=== PATIENT | female | born 1960 | race Caucasian/White ===

== ENCOUNTER → 2016-07-19 | Outpatient (CLI) | payer BC ==
[~2016-07-19] MED LIST: ALBU18002 INH; AMOX875T PO; METH4PAK PO; MOME200A INH; MULTTAB58 PO; NUTRTAB40 PO; PHEN-876 PO; PXL/40 PO; RIZA10TA18 PO; TAMS0.4C38 PO; ZOLP5TAB PO
--- NOTE | 2016-07-19 14:35 | DIAGNOSTIC IMAGING REPORT ---
Study: Fusion CT of the sinuses HISTORY: Recurrent sinusitis FINDINGS: Minimal mucosal thickening of the mastoid air cells. Sphenoid sinuses are clear. There has been bilateral antral window placement. These are widely patent. The [place] ostiomeatal units appear to be soft tissue occluded and/or surgically removed. Partial ethmoidectomy. Partial to mid nasal turbinate resection. Mild hypertrophic change of the residual nasal turbinates. No significant nasal occlusive change. IMPRESSION: 1. Findings consistent with partial ethmoidectomies, bilateral patent antral window placement, and partial nasal turbinate resection. 2. All major sinuses are generally clear. 3. The antral windows are widely patent. 4. Mild hyperplastic change of the residual nasal turbinates Electronically signed by: Chandra Seay M.D. 07/19/2016 2:33 PM Dictated Date/Time: 07/19/2016 2:26 PM
== END | disposition home or self-care (01) ==
LOC: C.CTS 14:10
DX: J34.3 Hypertrophy of nasal turbinates (principal)

== ENCOUNTER 2016-08-06 01:41 | Emergency (ER) | payer BC ==
[~2016-08-06] VITALS: Ht 170.2 cm; Wt 83.3 kg
[~2016-08-06 01:41] MED LIST changes: -ALBU18002 INH; -AMOX875T PO; -METH4PAK PO; -MOME200A INH
[2016-08-06 01:44] VITALS: Ht 170.2 cm; Wt 83.3 kg
[2016-08-06] MEDS ORDERED: KETOROLAC TROMETHAMINE 30 MG/ML VIAL IV STA (01:58)
[2016-08-06] MEDS ORDERED: SODIUM CHLORIDE 0.9% 1000ML 1,000 ML IV STA ×2 (01:58→05:07)
[2016-08-06] MEDS ORDERED: MoRPHine SULFATE 10 MG/ML CARP/VIAL IV STA (01:58)
[2016-08-06] MEDS ORDERED: PROMETHAZINE HCL INJ 25 MG in SODIUM CHLORIDE 0.9% 50ML 50 ML IV STA (01:58)
--- NOTE | 2016-08-06 01:59 | EMERGENCY ROOM VISIT NOTE ---
History Report prepared by Ro: Malcolm Torres Under the Supervision of: Dr. Albaro Andrea M.D. First contact with patient: 01:49 Chief Complaint: HEADACHE Stated Complaint: MIGRAINE History of Present Illness The patient is a 56 year old female who presents to the Emergency Room with complaints of a worsening migraine headache that began at 1800, 8 hours prior to arrival. The patient states that she has had a "nagging headache" throughout the day today which worsened to a migraine at 1800 this evening. The patient has a history of migraine headache, but notes that she has not had one this severe in a couple of years. This episode is like those she has experienced in the past. She is also complaining of nausea currently. She denies any weakness, neck pain, or loss of bowel control. 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 A total of 10 systems reviewed and were otherwise negative. Past Medical & Surgical Medical Problems: (1) Kidney stone (2) Migraine Family History Kidney stones Social History Smoking Status: Former Smoker Alcohol Use: none Drug Use: none Occupation Status: employed Current/Historical Medications Scheduled Amoxicillin & Pot Clavulanate (Augmentin 875-125 mg), 875 MG PO BID Methylprednisolone (Medrol Dosepak), 1 PKT PO UD Mometasone Furoate-Formoterol (Dulera 200/5 Mcg), 2 PUFFS INH BID Multiple Vitamin (Multivitamin), 1 TAB PO QAM Paroxetine (Paxil), 40 MG PO HS Rizatriptan Benzoate (Maxalt), 10 MG PO PRN Scheduled PRN Albuterol Sulfate (Proair Respiclick), 1 PUFF INH DIRECTED PRN for SOB/ Wheezing Zolpidem Tartrate (Ambien), 5 MG PO HS PRN for Sleep Allergies Coded Allergies: Tobramycin (Verified Allergy, Mild, ITCHING, 08/06/16) Animal Dander (Verified Allergy, Unknown, HIVES, SNEEZING, WATERING EYES, 08/06/16) Uncoded Allergies: ? STEROID/ANTIBOTIC EYE GTT (Allergy, Mild, ITCHING, 08/14/12) Physical Exam Vital Signs Date Time Temp Pulse Resp B/P Pulse Ox O2 Delivery O2 Flow Rate FiO2 08/06/16 06:53 36.5 66 18 131/77 96 08/06/16 06:52 66 18 131/77 96 Room Air 08/06/16 05:00 85 20 98 Room Air 08/06/16 03:43 64 16 141/83 98 Room Air 08/06/16 01:44 36.5 67 16 160/90 98 Room Air Physical Exam GENERAL: Patient is well appearing and in mild distress. HEAD: No acute trauma, normocephalic atraumatic ENT: Mucous membranes moist, no nasal congestion. EYES: Equal/Reactive Bilaterally, No scleral icterus, Normal ROM NECK: No nuchal rigidity, no meningismus, trachea is midline, full ROM LUNGS: No dyspnea. Clear to auscultation and equal bilaterally. No wheeze, no rhonchi. HEART: Regular rate and rhythm. No murmurs, rubs, gallops appreciated. ABDOMEN: Soft, nontender, bowel sounds positive, no masses appreciated, no peritonitis. BACK: No midline tenderness, no CVA tenderness EXTREMITIES: Normal motion all extremities, no cyanosis, no edema. NEUROLOGIC: Awake, Alert, Oriented, no acute motor or sensory deficits, no focal weakness, cranial nerves grossly intact. SKIN: No rash, no jaundice, no diaphoresis. Medical Decision & Procedures ER Provider Diagnostic Interpretation: Radiology results and stated below per my review and radiologist interpretation: CT HEAD: No intracranial hemorrhage or mass effect. Opacification of the bilateral frontal sinuses and right ethmoid air cells. Radiologist: Ac Vaughn M.D. Laboratory Results 08/06/16 05:10 Red Blood Count 4.66, Mean Corpuscular Volume 84.8, Mean Corpuscular Hemoglobin 29.2, Mean Corpuscular Hemoglobin Concent 34.4, Mean Platelet Volume 9.6, Neutrophils (%) (Auto) 64.8, Lymphocytes (%) (Auto) 26.4, Monocytes (%) (Auto) 4.2, Eosinophils (%) (Auto) 3.5, Basophils (%) (Auto) 0.9, Neutrophils # (Auto) 2.94, Lymphocytes # (Auto) 1.20, Monocytes # (Auto) 0.19, Eosinophils # (Auto) 0.16, Basophils # (Auto) 0.04 08/06/16 05:10 Test 08/06/16 05:10 White Blood Count 4.54 K/uL (4.8-10.8) Red Blood Count 4.66 M/uL (4.2-5.4) Hemoglobin 13.6 g/dL (12.0-16.0) Hematocrit 39.5 % (37-47) Mean Corpuscular Volume 84.8 fL (80-100) Mean Corpuscular Hemoglobin 29.2 pg (25-34) Mean Corpuscular Hemoglobin Concent 34.4 g/dl (32-36) Platelet Count 234 K/uL (130-400) Mean Platelet Volume 9.6 fL (7.4-10.4) Neutrophils (%) (Auto) 64.8 % Lymphocytes (%) (Auto) 26.4 % Monocytes (%) (Auto) 4.2 % Eosinophils (%) (Auto) 3.5 % Basophils (%) (Auto) 0.9 % Neutrophils # (Auto) 2.94 K/uL (1.4-6.5) Lymphocytes # (Auto) 1.20 K/uL (1.2-3.4) Monocytes # (Auto) 0.19 K/uL (0.11-0.59) Eosinophils # (Auto) 0.16 K/uL (0-0.5) Basophils # (Auto) 0.04 K/uL (0-0.2) RDW Standard Deviation 39.6 fL (36.4-46.3) RDW Coefficient of Variation 12.7 % (11.5-14.5) Immature Granulocyte % (Auto) 0.2 % Immature Granulocyte # (Auto) 0.01 K/uL (0.00-0.02) Anion Gap 7.0 mmol/L (3-11) Est Creatinine Clear Calc Drug Dose 104.9 ml/min Estimated GFR () 114.9 Estimated GFR (Non- 99.2 BUN/Creatinine Ratio 17.0 (10-20) Calcium Level 8.4 mg/dl (8.5-10.1) Laboratory results as reviewed by me. Medications Administered Medications (Trade) Dose Ordered Sig/Landry Route Start Time Stop Time Status Last Admin Dose Admin Sodium Chloride 1,000 ml @ 999 mls/hr Q1H1M STAT IV 08/06/16 01:58 08/06/16 02:58 DC 08/06/16 02:20 999 MLS/HR Promethazine HCl/ Sodium Chloride (Phenergan Inj/ Nss 50ml) 51 ml @ 204 mls/hr NOW STAT IV 08/06/16 01:58 08/06/16 02:12 DC 08/06/16 02:21 204 MLS/HR Ketorolac Tromethamine (Toradol Inj) 30 mg NOW STAT IV 08/06/16 01:58 08/06/16 01:59 DC 08/06/16 02:21 30 MG Morphine Sulfate (MoRPHine SULFATE INJ) 4 mg STK-MED ONCE .ROUTE 08/06/16 02:07 08/06/16 02:08 DC 08/06/16 02:22 4 MG Morphine Sulfate (MoRPHine SULFATE INJ) 2 mg STK-MED ONCE .ROUTE 08/06/16 02:07 08/06/16 02:08 DC 08/06/16 02:22 2 MG Dexamethasone Sodium Phosphate (Decadron Inj) 10 mg NOW ONCE IV 08/06/16 03:15 08/06/16 03:16 DC 08/06/16 03:27 10 MG Morphine Sulfate (MoRPHine SULFATE INJ) 4 mg NOW STAT IV 08/06/16 03:08 08/06/16 03:09 DC 08/06/16 03:29 4 MG Ondansetron HCl (Zofran Inj) 4 mg NOW STAT IV 08/06/16 03:08 08/06/16 03:09 DC 08/06/16 03:27 4 MG Hydromorphone HCl (Dilaudid Inj) 1 mg NOW STAT IV 08/06/16 04:03 08/06/16 04:04 DC 08/06/16 04:09 1 MG Prochlorperazine Edisylate (Compazine Inj) 10 mg NOW STAT IV 08/06/16 04:39 08/06/16 04:40 DC 08/06/16 04:58 10 MG Diphenhydramine HCl 25 mg 25 mg NOW STAT IV 08/06/16 05:07 08/06/16 05:08 DC 08/06/16 05:46 25 MG Sodium Chloride (Nss 1000ml) 1,000 ml @ 999 mls/hr Q1H1M STAT IV 08/06/16 05:07 08/06/16 06:07 DC 08/06/16 05:47 999 MLS/HR Amoxicillin/ Clavulanate Potassium (Augmentin Tab) 875 mg ONE ONCE PO 08/06/16 06:15 08/06/16 06:16 DC 08/06/16 06:21 875 MG ED Course 0154: The patient was evaluated in room B12. A complete history and physical exam was performed. 0158: Ordered Toradol 30 mg IV, Promethazine HCl 51 mL @ 204 mL/hr IV, Morphine Sulfate 6 mg IV, Sodium Chloride 1000 mL @ 999 mL/hr IV. 0308: Ordered Zofran 4 mg IV, Morphine Sulfate 4 mg IV. 0315: Ordered Dexamethasone 10 mg IV. 0403: Ordered Dilaudid 1 mg IV. 0404: I checked on the patient at this time. Her headache is improved, but she would like some more pain medication. She admits to recently stopping her migraine medication due to a kidney stone. I suggested that we obtain a CT of the head and she is agreeable. 0429: I reevaluated the patient at this time. She is improving but notes that her nausea has returned. She noted that she is currently being treated for a severe sinus infection with a nasal spray. She follows with ENT. 0439: Ordered Prochlorperazine 10 mg IV. 0507: Ordered Sodium Chloride 1000 mL @ 999 mL/hr IV, Benadryl 25 mg IV. 0508: I checked on the patient at this time. She is feeling shaky and thinks that her blood sugar is low. I discussed the possibility of blood work and she is agreeable. 0609: I once again discussed the possibility of the Lumbar Puncture, she declines. The patient will be discharged home. 0615: Ordered Augmentin 875 mg PO. Medical Decision Differential: Headache, Migraine, Cluster Headache, Seizure, Meningitis, Sinusitis, CO exposure, ICH/SAH, Infectious, Tumor, Sinus Thrombosis, Arterial Dissection, amongst other pathologies entertained. 56 yr old female arrives with band like pain across forehead in to head. Consistent with her previous migraines which bring her to ED every few years. Admits coming off her Topiramate a few weeks ago which I suspect has worsened her headache. Furthermore, she notes being treated for frontal sinus congestion with ENT. Given multiple round of pain/nausea meds and patient with waxing/waning multiple different symptoms. Shaky post compazine thus Benadryl and labs done as she feels she has low blood sugar issues. No fever, no nuchal rigidity, no weakness, no AMS, headache improving and WBC not elevated. I do not feel this is bacterial meningitis, though I made clear to her that LP would be only way to definitively rule out, which she with shared decision making is not interested in having done at this time. The is possibility of viral meningitis, though her exam is not consistent with this. I suspect main cause if coming off her migraine medication, then developing sinus congestion, and then not taking her Maxalt in time for this migraine. After several hours in ED patient feeling much improved, and comfortable with discharge. We discussed abx and with worsening sinus congestion and ct findings seems reasonable doing Augmentin along with steroid pack. Impression Primary Impression: Headache Additional Impressions: Migraine Frontal sinusitis Scribe Attestation The scribe's documentation has been prepared under my direction and personally reviewed by me in its entirety. I confirm that the note above accurately reflects all work, treatment, procedures, and medical decision making performed by me. Departure Information Dispostion Home / Self-Care Prescriptions Amoxicillin & Pot Clavulanate (Augmentin 875-125 mg) 1 Tab Tab 875 MG PO BID for 7 Days, #14 TAB Prov: Albaro Andrea M.D. 08/06/16 Methylprednisolone (MEDROL DOSEPAK) 4 Mg Andrés 1 PKT PO UD for 6 Days, #1 PKT Prov: Albaro Andrea M.D. 08/06/16 Referrals Bacilio Gregg M.D. (PCP) Patient Instructions ED Headache Migraine, My [facility] Additional Instructions You have received multiple sedative type medications. These medications cause drowsiness and should not be used with other sedative medications. Do not drive , drink alcohol, perform dangerous activities, nor make important decisions after taking these medications. Please follow up with your primary care provider in the next few days to discuss your symptoms, along with CT findings of sinus blockages. Problem Qualifiers Primary Impression: Headache Headache type: unspecified Headache chronicity pattern: acute headache Intractability: not intractable Qualified Codes: R51 - Headache Additional Impressions: Migraine Migraine type: unspecified Status migrainosus presence: without status migrainosus Intractability: not intractable Qualified Codes: G43.909 - Migraine, unspecified, not intractable, without status migrainosus Frontal sinusitis Chronicity: subacute Qualified Codes: J01.10 - Acute frontal sinusitis, unspecified
[2016-08-06] MEDS ORDERED: MoRPHine SULFATE 4 MG/ML 1 ML CARP\\VIAL ONE (02:07)
[2016-08-06] MEDS ORDERED: MoRPHine SULFATE 2 MG/ML CARP ONE ×2 (02:07→03:25)
[2016-08-06] MEDS ORDERED: MOME200A INH (02:16)
[2016-08-06] MEDS ORDERED: ALBU18002 INH (02:17)
[2016-08-06] MEDS ORDERED: ONDANSETRON INJ 2 MG/ML 2 ML VIAL IV STA (03:08)
[2016-08-06] MEDS ORDERED: MoRPHine SULFATE 4 MG/ML 1 ML CARP\\VIAL IV STA (03:08)
[2016-08-06] MEDS ORDERED: DEXAMETHASONE SOD INJ 10 MG/ML VIAL IV ONE (03:15)
[2016-08-06] MEDS ORDERED: HYDROmorphone INJ 1 MG/ML SYR IV STA (04:03)
[2016-08-06] MEDS ORDERED: PROCHLORPERAZINE 5 MG/ML 2 ML VIAL IV STA (04:39)
[2016-08-06] MEDS ORDERED: DiphenhydrAMINE HCL 50 MG/ML VIAL IV STA (05:07)
[2016-08-06 05:22] LABS: BASO % 0.9 %; BASO ABS # 0.04 K/uL (0-0.2); COMPLETE YES; EOS % 3.5 %; HEMATOCRIT 39.5 % (37-47); IG% 0.2 %; LYMPH % 26.4 %; MEAN CELL VOLUME 84.8 fL (80-100); MEAN CORPUSCULAR HEMOGLOBIN 29.2 pg (25-34); MEAN CORPUSCULAR HGB CONC 34.4 g/dl (32-36); MEAN PLATELET VOLUME 9.6 fL (7.4-10.4); MONO % 4.2 %; NEUT % 64.8 %; PLATELET COUNT 234 K/uL (130-400); RED BLOOD COUNT 4.66 M/uL (4.2-5.4); WHITE BLOOD COUNT 4.54 K/uL (4.8-10.8)
[2016-08-06 05:41] LABS: CALCIUM 8.4 mg/dl (8.5-10.1); CREATININE 0.68 mg/dl (0.60-1.20)
[2016-08-06] MEDS ORDERED: AMOXICILLIN/CLAVULANATE TAB 875 MG TAB PO ONE (06:15)
[2016-08-06] MEDS ORDERED: METH4PAK PO (06:18)
[2016-08-06] MEDS ORDERED: AMOX875T PO (06:18)
--- NOTE | 2016-08-06 06:30 | DIAGNOSTIC IMAGING REPORT ---
CT HEAD WITHOUT CONTRAST (CT) CLINICAL HISTORY: Persistent headache COMPARISON STUDY: October 19, 2008 TECHNIQUE: Axial CT of the brain is performed from the vertex to the skull base. IV contrast was not administered for this examination. CT DOSE: 614.27 mGy.cm FINDINGS: No intra or extra-axial mass lesions are visualized. There is no CT evidence of acute cortical infarction. There is no evidence of midline shift. There is no acute hemorrhage. No calvarial fractures are visualized. There is no evidence of pathologic ventricular dilatation. There is opacification of right anterior ethmoid air cells. There is partial opacification of the frontal sinuses. IMPRESSION: 1. Inflammatory changes within the right ethmoid and frontal sinuses 2. Otherwise no acute intracranial findings. Electronically signed by: Booker Pickett M.D. 08/06/2016 6:29 AM Dictated Date/Time: 08/06/2016 6:27 AM
[2016-08-06 06:53] VITALS: BP 131/77; PULSE 66; TEMP 36.5; O2SAT 96
== END 2016-08-06 06:54 | disposition home or self-care (01) ==
LOC: C.EDB 01:42
DX: G43.909 Migraine, unspecified, not intractable, without status migrainosus (principal); J01.10 Acute frontal sinusitis, unspecified; Z87.442 Personal history of urinary calculi; Z84.1 Family history of disorders of kidney and ureter; Z87.891 Personal history of nicotine dependence; Z79.899 Other long term (current) drug therapy

== ENCOUNTER → 2016-08-10 | Outpatient (CLI) | payer BC ==
[~2016-08-10] MED LIST changes: +ALBU18002 INH; +AMOX875T PO; +METH4PAK PO; +MOME200A INH; -NUTRTAB40 PO; -PHEN-876 PO; -TAMS0.4C38 PO
[2016-08-10 09:13] LABS: ALT/SGPT 21 U/L (12-78); BLOOD UREA NITROGEN 14 mg/dl (7-18); BUN/CREATININE RATIO 22.7 (10-20); CARBON DIOXIDE 30 mmol/L (21-32); CHLORIDE 106 mmol/L (98-107); CHOLESTEROL 260 mg/dl (0-200); CREATININE 0.63 mg/dl (0.60-1.20); GLUCOSE 74 mg/dl (70-99); POTASSIUM 3.5 mmol/L (3.5-5.1); SODIUM 143 mmol/L (136-145); TRIGLYCERIDES 140 mg/dl (0-150); VERY LOW DENSITY LIPOPROT CALC 28 mg/dl
[2016-08-10 09:21] LABS: CALCIUM 9.5 mg/dl (8.5-10.1)
[2016-08-10 09:24] LABS: ALKALINE PHOSPHATASE 80 U/L (45-117); AST/SGOT 8 U/L (15-37); CHOLESTEROL/HDL RATIO 3.6; HDL CHOLESTEROL 73 mg/dl; LDL CHOLESTEROL CALCULATED 159 mg/dl; THYROID STIMULATING HORMONE 0.463 uIu/ml (0.300-4.500)
== END | disposition home or self-care (01) ==
LOC: C.LAB 06:58
PROVIDERS: ATTEND Internal Medicine
DX: R53.83 Other fatigue (principal); E78.5 Hyperlipidemia, unspecified; E87.6 Hypokalemia; M19.90 Unspecified osteoarthritis, unspecified site

== ENCOUNTER → 2017-01-17 | Outpatient (CLI) | payer BC ==
[~2017-01-17] MED LIST changes: -AMOX875T PO; -METH4PAK PO
--- NOTE | 2017-01-17 14:41 | DIAGNOSTIC IMAGING REPORT ---
KUB HISTORY: NEPHROLITHIASIS COMPARISON: KUB 07/17/2015. FINDINGS: The bowel gas pattern is unremarkable. There are no dilated loops of small bowel to suggest an obstruction. No ureteral calculi. Calcifications in the deep pelvis likely represent phleboliths. These remain unchanged. The left ureteral stent has been removed. Punctate stones within the lower pole the left kidney on the prior study are no longer identified and may have passed in the interval. There are suggestion of a punctate stone within the interpolar region of the left kidney. No definite right renal calculi. No pneumoperitoneum or pneumatosis. IMPRESSION: 1. Decrease in number of stones within the left kidney. 2. No right renal calculi. 3. No ureteral calculi. Electronically signed by: Souleymane Morales M.D. 01/17/2017 2:39 PM Dictated Date/Time: 01/17/2017 2:37 PM
== END | disposition home or self-care (01) ==
LOC: C.RAD 14:16
PROVIDERS: ATTEND Urology
DX: N20.0 Calculus of kidney (principal)

== ENCOUNTER → 2017-05-16 | Outpatient (CLI) | payer OTHER | END | disposition home or self-care (01) | LOC: C.RDSM 18:28 | PROVIDERS: ATTEND Orthopaedic Surgery | DX: S82.001A Unspecified fracture of right patella, initial encounter for closed fracture (principal); X58.XXXA Exposure to other specified factors, initial encounter ==

== ENCOUNTER → 2017-05-27 | Outpatient (CLI) | payer OTHER ==
--- NOTE | 2017-05-28 08:03 | MAMMOGRAPHY REPORT ---
BILATERAL DIGITAL SCREENING MAMMOGRAM TOMOSYNTHESIS WITH CAD: 05/27/2017 CLINICAL HISTORY: Routine screening. Patient has no complaints. TECHNIQUE: Breast tomosynthesis in addition to standard 2D mammography was performed. Current study was also evaluated with a Computer Aided Detection (CAD) system. COMPARISON: Comparison is made to exams dated: 03/22/2016 mammogram, 05/11/2015 mammogram, 02/28/2015 mammogram, 02/28/2015 ultrasound, 02/09/2015 mammogram, and 01/26/2013 mammogram - [facility]. BREAST COMPOSITION: There are scattered areas of fibroglandular density in both breasts. FINDINGS: There is a stable benign coarse calcification in the left breast. No suspicious mass, arc hitectural distortion or cluster of microcalcifications is seen. IMPRESSION: ACR BI-RADS CATEGORY 1: NEGATIVE There is no mammographic evidence of malignancy. A 1 year screening mammogram is recommended. The pa tient will receive written notification of the results. Approximately 10% of breast cancers are not detected with mammography. A negative mammographic report should not delay biopsy if a clinically suggestive mass is present. Kandice Doe M.D. ay/:05/27/2017 15:13:26 Assistant Plant Control Operator: Jennie Funes, [facility] letter sent: Normal 1/2 BI-RADS Code: ACR BI-RADS Category 1: Negative
== END | disposition home or self-care (01) ==
LOC: C.MAMM 13:44
PROVIDERS: ATTEND Obstetrics & Gynecology
DX: Z12.31 Encounter for screening mammogram for malignant neoplasm of breast (principal)

== ENCOUNTER → 2017-05-30 | Outpatient (CLI) | payer OTHER | END | disposition home or self-care (01) | LOC: C.RDSM 15:38 | PROVIDERS: ATTEND Orthopaedic Surgery | DX: S82.001A Unspecified fracture of right patella, initial encounter for closed fracture (principal); X58.XXXA Exposure to other specified factors, initial encounter; Z88.1 Allergy status to other antibiotic agents; Z91.048 Other nonmedicinal substance allergy status ==

== ENCOUNTER → 2017-06-27 | Outpatient (CLI) | payer OTHER | END | disposition home or self-care (01) | LOC: C.RDSM 09:48 | PROVIDERS: ATTEND Orthopaedic Surgery | DX: S89.91XA Unspecified injury of right lower leg, initial encounter (principal); X58.XXXA Exposure to other specified factors, initial encounter ==

== ENCOUNTER → 2017-07-25 | Outpatient (CLI) | payer OTHER | END | disposition home or self-care (01) | LOC: C.RDSM 18:18 | PROVIDERS: ATTEND Orthopaedic Surgery | DX: T14.8XXA Other injury of unspecified body region, initial encounter (principal); X58.XXXA Exposure to other specified factors, initial encounter ==

== ENCOUNTER 2024-12-12 21:55 | Observation (INO) ==
--- NOTE | 2024-12-12 22:36 | Emergency Department Note ---
Impression & Plan Vertigo, Nausea & vomiting, Dizziness ED Provider Note CHIEF COMPLAINT: Vertigo HISTORY OF PRESENTING ILLNESS: The patient is a 64-year-old female with a H anxiety, depression, insomnia, asthma, prediabetes, migraines, KULWANT, and hyperlipidemia who presents to the emergency department reporting dizziness as if the room is spinning and nausea that began around dinnertime about 5 to 6 hours ago. She reports having a similar episode of vertigo a couple of years ago. She has not taken anything for symptoms. She is not able to ambulate on her own without almost falling over. Reports blurry vision when she does have these episodes. Denies slurred speech, facial droop, headache, neck pain, shortness of breath, chest pain, abdominal pain, injury or trauma. REVIEW OF SYSTEMS: See HPI for pertinent positives and pertinent negatives. ALLERGIES: Tobramycin, sulfamethoxazole, trimethoprim, animal dander MEDICATIONS: See below PAST MEDICAL HISTORY: See below PHYSICAL EXAM: VITALS: Vitals are noted on the nurses note and reviewed by myself. Vital signs stable. GENERAL: 64-year-old female, lying in bed with a pillow propped behind her head, holding an emesis bag, in no acute distress, nondiaphoretic, well-developed well-nourished. SKIN: Capillary refill less than 2 seconds. HEENT: Normocephalic. PERRLA. EOMI. Horizontal nystagmus upon movement. Nares patent. Mucous membranes moist. Neck is supple without nuchal rigidity. HEART: Regular rate and rhythm without murmurs gallops or rubs. LUNGS: CTA BL without wheezes, rales or rhonchi. No retractions or accessory muscle use. ABDOMEN: Soft, nontender, without masses or organomegaly. No guarding or rebound tenderness. MUSCULOSKELETAL: No gross musculoskeletal defects. No pedal edema. No calf tenderness. NEURO: Patient was alert and oriented to person place and time. No focal neurological deficits. INTERPRETATION OF LABS: I interpreted the labs with full lab results as below in the lab section of this note. Pertinent lab results discussed in the MDM section below. INTERPRETATION OF IMAGING: No images were obtained. MEDICATIONS GIVEN: Meclizine 25 mg PO, 1 L normal saline, Ativan 1 mg SL, Zofran 4 mg IV CONSULTATIONS: On-call [facility] hospitalist - Presented the patient to the provider and that we have tried meclizine, Ativan, 1 L normal saline, and Zofran without improvement. The patient is not able to ambulate without wobbling and is at risk of falling. When I discussed discharge with the patient and continuing meclizine she was worried as she does live alone. Due to the patient's fall risk and her continuous symptoms she was admitted to medicine. MDM SUMMARY: I evaluated the 64-year-old female who presents the emergency department due to dizziness as if the room is spinning, inability to ambulate, and nausea and vomiting for the past 5 hours. See HPI and physical exam above. IV access was established and labs were obtained. Meclizine and 1 L normal saline were initially given for symptom management. EKG initial rate 50 bpm sinus bradycardia. No other abnormality. Patient denies headache, slurred speech, facial droop, or unilateral weakness. Patient has had similar episodes of this before where a full stroke workup was obtained showing no abnormality. No additional concerning signs warranting further imaging at this time. When the patient does move her head left and right she does have horizontal nystagmus visualized on exam. Her symptoms are likely due to peripheral vertigo as it does get worse with movement. On reevaluation she does confirm that she had felt slightly better but she got up to ambulate to the restroom and her symptoms returned. She was given Ativan and Zofran additionally. Labs reassuring. No leukocytosis. Hemodynamically stable. Hypokalemia 3.2. No other electrolyte abnormality. No POLO. Glucose 130. All labs reviewed with the patient. Again on evaluation the patient is sitting in bed with her emesis bag and is not able to ambulate. We discussed continuing meclizine, reaching out to primary care/ENT for vestibular therapy, and return precautions but the patient lives alone and does not feel as if she can ambulate safely at home feeling this way. Consultation with the on-call hospitalist can be seen in detail above. They agreed to admitting the patient to medicine. All questions were answered. The patient was admitted to medicine in stable condition. DIAGNOSIS: Vertigo, nausea and vomiting, dizziness The chart was completed utilizing New [employer] voice recognition software. Grammatical errors, random word insertions, pronoun errors, and incomplete sentences are an occasional consequence of this system due to software limitations, ambient noise, and hardware issues. Any formal questions or concerns about the content, text, or information contained within the body of this dictation should be directly addressed to the provider for clarification. Past Med/Surg History Problem List (Updated 12/15/24 @ 13:44 by Yuliet Hassan PA-C) Dizziness (Acute) Nausea & vomiting (Acute) Vertigo (Acute) Hyperlipidemia Vitamin D insufficiency Impaired fasting glucose KULWANT (obstructive sleep apnea) mild, no device needed Multiple pulmonary nodules Exertional shortness of breath Obesity (BMI 30.0-34.9) Allergic rhinitis with postnasal drip Hypersomnia Upper airway cough syndrome Migraine Chronic low back pain Prediabetes metformin daily Allergic rhinitis due to pollen (Chronic) Arthritis (Chronic) Disc degeneration, lumbosacral (Chronic) Esophageal reflux (Chronic) Extrinsic asthma (Chronic) inhaler daily, nebulizer prn Hypercholesteremia (Chronic) Nasal polyps (Chronic) Tubular adenoma of colon (Chronic) Insomnia Depression Anxiety Medical History Hx of colonic polyps Upper airway cough syndrome pt denies "never told this" History of prediabetes History of obstructive sleep apnea "mild," no device necessary Multiple pulmonary nodules pt denies "never told this" Hx of migraines Hx of insomnia Hx of hypercholesterolemia Extrinsic asthma inhaler daily, nebulizer prn Hx of gastroesophageal reflux (GERD) Disc degeneration, lumbar hx Exertional shortness of breath hx, "no problems as long as she takes her inhaler" Chronic low back pain History of arthritis Anxiety and depression hx History of anesthesia reaction difficulty waking; no issues with colonoscopies Hx of nasal polyp removed with sinus sx. History of kidney stones Surgical History S/P trigger finger release rt thumb S/P epidural steroid injection History of arthroscopy rt knee History of surgical removal of ganglion cyst left hand History of repair of ACL rt knee History of appendectomy History of hysterectomy History of lithotripsy History of colonoscopy (2021) History of sinus surgery History of blepharoplasty Family History Mother Breast cancer Father Sinusitis Family/Other Lung cancer Other No family history of adverse response to anesthesia Denies family history of Ovarian cancer Prostate cancer Coronary heart disease Colorectal cancer Social History Smoking Status: Never smoker Tobacco Type: Cigarettes Age Started Using Tobacco: 17; Age Quit Using Tobacco: 20; packs per day: 0.5; Second Hand Exposure: Yes (hx growing up); Do You Dip or Chew Tobacco: No; Hx Alcohol Use: Yes Alcohol type: wine Hx Substance Use: No Preferred Language: Indonesian Communication Ability: Effective Visual Impairment: No Limitations Hearing Ability: Normal Certified Hyperbaric Technician Required: No Beliefs That Will Affect Care: None Current Living Situation: Spouse current occupational status: employed Feels Safe at Home: Yes Physical Activity Frequency: Daily Seatbelt Use: always Sunscreen Use: Yes Assistive Devices: None Allergies Allergies Allergy/AdvReac Type Severity Reaction Status Date / Time animal dander Allergy Intermediate HIVES, Verified 12/13/24 00:01 SNEEZING, WATERING EYES tobramycin Allergy Intermediate ITCHING Verified 12/13/24 00:01 sulfamethoxazole AdvReac Intermediate Gastrointestinal Verified 12/13/24 00:01 [From Bactrim] Upset trimethoprim [From Bactrim] AdvReac Intermediate Gastrointestinal Verified 12/13/24 00:01 Upset Home Meds Home Medications Medication Instructions Recorded Confirmed rosuvastatin 40 mg tablet 40 mg PO HS 09/27/24 12/13/24 zolpidem 5 mg tablet 10 mg PO HS PRN insomnia 09/27/24 12/13/24 fluticasone 100 mcg-salmeterol 50 1 inh inhalation BID PRN Shortness 12/13/24 12/13/24 mcg/dose blistr powdr for Of Breath Or Wheezing inhalation (Advair Diskus) Previous Rx's Medication Instructions Recorded albuterol sulfate 2.5 mg/3 mL 2.5 mg (3 mL) inhalation Q4H PRN 05/02/21 (0.083 %) solution for nebulization shortness of breath or wheezing #90 mL acetaminophen 500 mg tablet 1,000 mg (2 x 500 mg) PO Q8 PRN 10/01/21 (Tylenol Extra Strength) pain #30 tabs fluticasone propionate 50 1 spray intranasal QAM PRN 04/09/22 mcg/actuation nasal Congestion #48 grams spray,suspension (Allergy Relief (fluticasone)) levocetirizine 5 mg tablet 5 mg PO HS PRN allergy symptoms 09/17/24 #90 tabs pantoprazole 40 mg tablet,delayed 40 mg PO HS #90 tabs 09/17/24 release paroxetine HCl 20 mg tablet 20 mg PO HS #90 tabs 09/17/24 rizatriptan 10 mg disintegrating 10 mg PO UD PRN Headache #14 tabs 09/17/24 tablet semaglutide (weight loss) 0.5 0.5 mg (0.5 mL) subcut Q7D #2 mL 09/28/24 mg/0.5 mL subcutaneous pen injector (Wegovy) meclizine 25 mg tablet 25 mg PO TID #60 tabs 12/14/24 Results & Data (ED) Vital Signs Vital Signs - 24 hr 12/12/24 22:05 12/12/24 22:30 Temperature 36.3 C L Temperature Source Oral Pulse Rate 60 49 L Respiratory Rate 18 Respiratory Effort / Characteristics Non-Labored Spontaneous Respiratory Depth Normal Respiratory Pattern Regular Blood Pressure 152/94 H Blood Pressure Mean 113 Blood Pressure Position Sitting Pulse Oximetry 100 Oxygen Delivery Method Room Air Sepsis Recent Fever Within 48 Hours No Sepsis New/Unexplained Change in Mental Status N/A Sepsis Action Taken by Nursing No Action Required Laboratory Data 12/12/24 22:54 12/14/24 06:59 Lab Results 12/12/24 Range/Units 22:54 WBC 6.74 (4.8-10.8) K/ul RBC 4.03 L (4.20-5.40) M/uL Hgb 11.1 L (12.0-16.0) g/dl Hct 33.8 L (37.0-47.0) % MCV 83.9 (80.0-100.0) fL MCH 27.5 (25.0-34.0) pg MCHC 32.8 (32.0-36.0) g/dL RDW Std Deviation 37.7 (36.4-46.3) fL RDW Coeff of Monica 12.4 (11.5-14.5) % Plt Count 202 (130-400) K/uL MPV 9.9 (9.4-12.4) fL Immature Gran % (Auto) 0.3 % Neut % (Auto) 67.3 % Lymph % (Auto) 21.7 % [place] % (Auto) 6.8 % Eos % (Auto) 3.0 % Baso % (Auto) 0.9 % Neut # (Auto) 4.54 (1.40-6.50) K/uL Lymph # (Auto) 1.46 (1.20-3.40) K/uL [place] # (Auto) 0.46 (0.11-0.59) K/uL Eos # (Auto) 0.20 (0.00-0.50) K/uL Baso # (Auto) 0.06 (0.00-0.20) K/uL Immature Gran # (Auto) 0.02 (0.01-0.20) K/uL Sodium 142 (136-145) mmol/L Potassium 3.2 L (3.5-5.1) mmol/L Chloride 107 (98-107) mmol/L Carbon Dioxide 26 (21-32) mmol/L Anion Gap 9 (3-11) BUN 19 (6-23) mg/dl Creatinine 1.05 (0.6-1.2) mg/dl Est Cr Clr Drug Dosing 60.2 ml/min eGFR 60.08 BUN/Creatinine Ratio 18.1 (10-20) Glucose 130 H (70-99(Fasting)) mg/dl Calcium 9.0 (8.6-10.3) mg/dl Total Bilirubin 0.5 (0.2-1.0) mg/dl AST 18 (13-39) U/L ALT 14 (7-52) U/L Alkaline Phosphatase 77 (34-104) U/L Total Protein 6.5 (6.0-8.3) gm/dl Albumin 3.8 (3.4-5.0) gm/dl Globulin 2.7 (2.5-4.0) gm/dl Albumin/Globulin Ratio 1.4 (0.9-2) Administered Medications Discontinued Medications Acetaminophen (Acetaminophen 500 Mg Tab) 1,000 mg PO Q8 PRN PRN Reason: pain Stop: 01/12/25 03:07 Last Admin: 12/14/24 09:35 Dose: 1,000 mg Documented By: RAMILA Diazepam (Diazepam 2 Mg Tablet) 2 mg PO NOW ONE Stop: 12/13/24 03:09 Last Admin: 12/13/24 04:23 Dose: Not Given Documented By: MESFIN Fluticasone/Vilanterol (Fluticasone/Vilanterol 100/25mcg 14 Puffs/Inhaler) 1 puffs INH DAILY ANDREAS Stop: 01/12/25 08:59 Last Admin: 12/14/24 09:36 Dose: Not Given Documented By: Admin: 12/13/24 08:42 Dose: 1 puffs Documented By: LIZETH Sodium Chloride (Nss) 1,000 mls @ 999 mls/hr IV .Q1H1M ONE Stop: 12/12/24 23:54 Last Infusion: 12/13/24 00:10 Dose: Infused Documented By: Admin: 12/12/24 23:14 Dose: 999 mls/hr Documented By: RISSA Potassium Chloride (K [place] / Wtr) 10 meq in 100 mls @ 100 mls/hr IV Q1H ANDREAS Stop: 12/13/24 06:29 Last Infusion: 12/13/24 08:19 Dose: Infused Documented By: Admin: 12/13/24 06:19 Dose: 100 mls/hr Documented By: Infusion: 12/13/24 06:14 Dose: Infused Documented By: Admin: 12/13/24 05:10 Dose: 100 mls/hr Documented By: Infusion: 12/13/24 05:09 Dose: Infused Documented By: Admin: 12/13/24 04:09 Dose: 100 mls/hr Documented By: MESFIN Lorazepam (Lorazepam 1 Mg Tab) 1 mg SL NOW STA Stop: 12/13/24 00:08 Last Admin: 12/13/24 00:13 Dose: 1 mg Documented By: RISSA Lorazepam (Lorazepam 2 Mg/1 Ml Vial) 2 mg IV NOW STA Stop: 12/13/24 03:31 Last Admin: 12/13/24 04:09 Dose: 2 mg Documented By: MESFIN Meclizine HCl (Meclizine Hcl 25 Mg Tab) 25 mg PO NOW STA Stop: 12/12/24 22:55 Last Admin: 12/12/24 23:11 Dose: 25 mg Documented By: RISSA Meclizine HCl (Meclizine Hcl 25 Mg Tab) 25 mg PO TID ANDREAS Stop: 01/12/25 08:59 Last Admin: 12/14/24 09:35 Dose: 25 mg Documented By: Admin: 12/13/24 20:38 Dose: 25 mg Documented By: Admin: 12/13/24 13:51 Dose: 25 mg Documented By: Admin: 12/13/24 08:42 Dose: 25 mg Documented By: LIZETH Ondansetron HCl (Ondansetron Inj 2 Mg/Ml 2 Ml Vial) 4 mg IV NOW STA Stop: 12/13/24 01:40 Last Admin: 12/13/24 01:46 Dose: 4 mg Documented By: RISSA Ondansetron HCl (Ondansetron Inj 2 Mg/Ml 2 Ml Vial) 4 mg IV Q6H PRN PRN Reason: Nausea And Vomiting Stop: 01/12/25 03:07 Last Admin: 12/13/24 10:40 Dose: 4 mg Documented By: LIZETH Pantoprazole Sodium (Pantoprazole 40 Mg Tab) 40 mg PO [facility] Stop: 01/12/25 20:59 Last Admin: 12/13/24 20:39 Dose: 40 mg Documented By: DAMION Paroxetine HCl (Paroxetine Hcl 20 Mg Tab) 20 mg PO [facility] Stop: 01/12/25 20:59 Last Admin: 12/13/24 20:39 Dose: 20 mg Documented By: DAMION Potassium Chloride (Potassium Chloride 10 Meq Tabcr) 40 meq PO NOW STA Stop: 12/13/24 03:09 Last Admin: 12/13/24 04:23 Dose: Not Given Documented By: MESFIN Rosuvastatin Calcium (Rosuvastatin Calcium 20 Mg Tab) 40 mg PO [facility] Stop: 01/12/25 20:59 Last Admin: 12/13/24 20:39 Dose: 40 mg Documented By: DAMION Discharge Plan Visit Data Chief Complaint: Vertigo Stated Complaint: VERTIGO ED Provider: Larry Reddy ED Midlevel Provider: Yuliet Hassan Discharge Problem: Vertigo, Nausea & vomiting, Dizziness Patient Disposition: Admitted As Inpatient Condition: Good Discharge Instructions Interventions: ED Discharge Assessment Last Done: 12/13/24 03:08 Discharge Problem: Nausea & vomiting Qualifiers: Vomiting type: unspecified Qualified Code(s): R11.2 - Nausea with vomiting, unspecified
[2024-12-12] MEDS: MECLIZINE HCL 25 MG TAB PO STA (23:11)
[2024-12-12] MEDS: SODIUM CHLORIDE 0.9% 1,000 ML IV ONE (23:14)
[2024-12-12 23:26] LABS: Hematocrit (blood only) 33.8 % (37.0-47.0); Hemoglobin 11.1 g/dl (12.0-16.0); Immature Granulocytes # (auto) 0.02 K/uL (0.01-0.20); Immature Granulocytes % (auto) 0.3 %; Mean Corpuscular Hemoglobin 27.5 pg (25.0-34.0); Mean Corpuscular Volume 83.9 fL (80.0-100.0); Platelet Count 202 K/uL (130-400); RDW Standard Deviation 37.7 fL (36.4-46.3); Red Blood Count 4.03 M/uL (4.20-5.40); White Blood Count 6.74 K/ul (4.8-10.8)
[2024-12-12 23:42] LABS: Alanine Aminotransferase 14.0 U/L (7-52); Albumin Globulin Ratio 1.4 (0.9-2); Alkaline Phosphatase 77.0 U/L (34-104); Anion Gap 9.0 (3-11); Bilirubin,Total 0.5 mg/dl (0.2-1.0); Blood Urea Nitrogen 19.0 mg/dl (6-23); Calcium 9.0 mg/dl (8.6-10.3); Carbon Dioxide 26.0 mmol/L (21-32); Chloride 107.0 mmol/L (98-107); Creatinine Clr Calc Pharmacy 60.2 ml/min; Globulin 2.7 gm/dl (2.5-4.0); Glucose 130.0 mg/dl (70-99(Fasting)); Potassium 3.2 mmol/L (3.5-5.1); Sodium 142.0 mmol/L (136-145); Total Protein 6.5 gm/dl (6.0-8.3)
[2024-12-13] MEDS: LORazepam 1 MG TAB SL STA (00:13)
[2024-12-13] MEDS: ONDANSETRON INJ 2 MG/ML 2 ML VIAL IV STA (01:46)
--- NOTE | 2024-12-13 01:58 | History & Physical Report ---
Date of Service December 13, 2024 Assessment & Plan (1) Vertigo: (2) Hyperlipidemia: Plan 64-year-old female presenting with vertigo symptoms that began around 17: 00. No improvement with 1 round of medication administered in the ER. Patient does live alone and is unable to ambulate #Vertigo Presumed peripheral vertigo as suggested by hints exam Observation to [facility] Maintain fall precautions Meclizine 25 mg p.o. 3 times daily scheduled Zofran as needed PT/OT evaluations appreciated #Hyperlipidemia Continue Crestor #Hypokalemia Oral potassium failed due to vomiting, K riders ordered Repeat BMP in the morning #Anxiety/mental health Continue paroxetine 20 mg p.o. nightly #GERD Continue Protonix 40 mg p.o. nightly History of Present Illness Chief Complaint: vertigo Primary Care Provider: DOMINIC Rivero Vaishali Jimenes is a 64-year-old female with history of hyperlipidemia and GERD presenting with vertigo. Patient was sitting watching TV this evening around 17: 00 when she developed acute onset of vertigo. She reports she feels the room is spinning. Visual blurriness as well as gait instability. No headache, speech difficulty, focal numbness/tingling/weakness. Patient seen in the ER and received several rounds of medication with no improvement in symptoms. Unable to ambulate. Lives alone. ER course: Meclizine 25 mg p.o. Normal saline x 1 L Ativan 1 mg IV Zofran 4 mg IV P.o. Valium and p.o. potassium attempted however, patient was unable to take the pills and vomited immediately Allergies Allergy/AdvReac Type Severity Reaction Status Date / Time animal dander Allergy Intermediate HIVES, Verified 12/13/24 00:01 SNEEZING, WATERING EYES tobramycin Allergy Intermediate ITCHING Verified 12/13/24 00:01 sulfamethoxazole AdvReac Intermediate Gastrointestinal Verified 12/13/24 00:01 [From Bactrim] Upset trimethoprim [From Bactrim] AdvReac Intermediate Gastrointestinal Verified 12/13/24 00:01 Upset Home Medications Medication Instructions Recorded Confirmed Type albuterol sulfate 2.5 mg/3 mL 2.5 mg (3 mL) inhalation Q4H PRN 05/02/21 12/13/24 Rx (0.083 %) solution for nebulization shortness of breath or wheezing #90 mL acetaminophen 500 mg tablet 1,000 mg (2 x 500 mg) PO Q8 PRN 10/01/21 12/13/24 Rx (Tylenol Extra Strength) pain #30 tabs fluticasone propionate 50 1 spray intranasal QAM PRN 04/09/22 12/13/24 Rx mcg/actuation nasal Congestion #48 grams spray,suspension (Allergy Relief (fluticasone)) levocetirizine 5 mg tablet 5 mg PO HS PRN allergy symptoms 09/17/24 12/13/24 Rx #90 tabs pantoprazole 40 mg tablet,delayed 40 mg PO HS #90 tabs 09/17/24 12/13/24 Rx release paroxetine HCl 20 mg tablet 20 mg PO HS #90 tabs 09/17/24 12/13/24 Rx rizatriptan 10 mg disintegrating 10 mg PO UD PRN Headache #14 tabs 09/17/24 12/13/24 Rx tablet rosuvastatin 40 mg tablet 40 mg PO HS 09/27/24 12/13/24 History zolpidem 5 mg tablet 10 mg PO HS PRN insomnia 09/27/24 12/13/24 History semaglutide (weight loss) 0.5 0.5 mg (0.5 mL) subcut Q7D #2 mL 09/28/24 12/13/24 Rx mg/0.5 mL subcutaneous pen injector (Shelli) fluticasone 100 mcg-salmeterol 50 1 inh inhalation BID PRN Shortness 12/13/24 12/13/24 History mcg/dose blistr powdr for Of Breath Or Wheezing inhalation (Advair Diskus) Past Med/Surg History Problem List (Updated 12/13/24 @ 03:37 by Chayo Austin DO) Hyperlipidemia Vitamin D insufficiency Impaired fasting glucose KULWANT (obstructive sleep apnea) mild, no device needed Multiple pulmonary nodules Exertional shortness of breath Obesity (BMI 30.0-34.9) Allergic rhinitis with postnasal drip Hypersomnia Upper airway cough syndrome Migraine Chronic low back pain Prediabetes metformin daily Allergic rhinitis due to pollen (Chronic) Arthritis (Chronic) Disc degeneration, lumbosacral (Chronic) Esophageal reflux (Chronic) Extrinsic asthma (Chronic) inhaler daily, nebulizer prn Hypercholesteremia (Chronic) Nasal polyps (Chronic) Tubular adenoma of colon (Chronic) Insomnia Depression Anxiety Medical History Hx of colonic polyps Upper airway cough syndrome pt denies "never told this" History of prediabetes History of obstructive sleep apnea "mild," no device necessary Multiple pulmonary nodules pt denies "never told this" Hx of migraines Hx of insomnia Hx of hypercholesterolemia Extrinsic asthma inhaler daily, nebulizer prn Hx of gastroesophageal reflux (GERD) Disc degeneration, lumbar hx Exertional shortness of breath hx, "no problems as long as she takes her inhaler" Chronic low back pain History of arthritis Anxiety and depression hx History of anesthesia reaction difficulty waking; no issues with colonoscopies Hx of nasal polyp removed with sinus sx. History of kidney stones Surgical History S/P trigger finger release rt thumb S/P epidural steroid injection History of arthroscopy rt knee History of surgical removal of ganglion cyst left hand History of repair of ACL rt knee History of appendectomy History of hysterectomy History of lithotripsy History of colonoscopy (2021) History of sinus surgery History of blepharoplasty Family History Mother Breast cancer Father Sinusitis Family/Other Lung cancer Other No family history of adverse response to anesthesia Denies family history of Ovarian cancer Prostate cancer Coronary heart disease Colorectal cancer Social History Smoking Status: Never smoker Tobacco Type: Cigarettes Age Started Using Tobacco: 17; Age Quit Using Tobacco: 20; packs per day: 0.5; Second Hand Exposure: Yes (hx growing up); Do You Dip or Chew Tobacco: No; Hx Alcohol Use: Yes Alcohol type: wine Hx Substance Use: No Preferred Language: Georgian Communication Ability: Effective Visual Impairment: No Limitations Hearing Ability: Normal Multimedia Educational Specialist Required: No Beliefs That Will Affect Care: None Current Living Situation: Alone current occupational status: employed Feels Safe at Home: Yes Physical Activity Frequency: Daily Seatbelt Use: always Sunscreen Use: Yes Assistive Devices: None Review of Systems Review of Systems: All systems reviewed & are unremarkable except as noted in HPI & below Physical Exam Physical Exam: General: patient resting comfortably, NAD, non-toxic in appearance, AA&O x 4 Skin: warm, dry, intact, no rashes or lesions HEENT: NC/AT, PERRL, EOMI, anicteric sclera, conjunctiva without injection, external ear normal to inspection and nontender, nares patent, moist mucus membranes, dentition intact, no oropharyngeal lesions, neck supple, trachea midline, no LAD, no thyromegaly, no JVD Heart: +S1/S2, regular, no m/r/g Lungs: equal air entry bilaterally, no rales/rhonchi/wheezes Abd: +BS, soft, NT/ND, no masses/organomegaly/ascites Ext: warm, 2+ pulses in UE/LE bilaterally, no clubbing/cyanosis or edema Neuro: nonfocal, patient AA&O x 4, speech intact, no facial droop, moving all extremities on command with equal strength 5/5 Horizontal nystagmus, corrective saccade present with head impulse testing, no ocular movements on test of skew Results & Data Results & Data Vital Signs (Past 12 Hours) Vital Signs Temp Pulse Pulse Resp BP BP Pulse Ox 12/13/24 00:00 56 L 14 141/81 H 99 12/12/24 22:30 49 L 12/12/24 22:05 36.3 C L 60 18 152/94 H 100 O2 Del Method 12/13/24 00:00 Room Air 12/12/24 22:30 12/12/24 22:05 Room Air Laboratory Results Laboratory Results WBC 6.74 K/ul (4.8-10.8) 12/12/24 22:54 RBC 4.03 M/uL (4.20-5.40) L 12/12/24 22:54 Hgb 11.1 g/dl (12.0-16.0) L 12/12/24 22:54 Hct 33.8 % (37.0-47.0) L 12/12/24 22:54 MCV 83.9 fL (80.0-100.0) 12/12/24 22:54 MCH 27.5 pg (25.0-34.0) 12/12/24 22:54 MCHC 32.8 g/dL (32.0-36.0) 12/12/24 22:54 RDW Std Deviation 37.7 fL (36.4-46.3) 12/12/24 22:54 RDW Coeff of Monica 12.4 % (11.5-14.5) 12/12/24 22:54 Plt Count 202 K/uL (130-400) 12/12/24 22:54 MPV 9.9 fL (9.4-12.4) 12/12/24 22:54 Immature Gran % (Auto) 0.3 % 12/12/24 22:54 Neut % (Auto) 67.3 % 12/12/24 22:54 Lymph % (Auto) 21.7 % 12/12/24 22:54 Angelina % (Auto) 6.8 % 12/12/24 22:54 Eos % (Auto) 3.0 % 12/12/24 22:54 Baso % (Auto) 0.9 % 12/12/24 22:54 Neut # (Auto) 4.54 K/uL (1.40-6.50) 12/12/24 22:54 Lymph # (Auto) 1.46 K/uL (1.20-3.40) 12/12/24 22:54 Angelina # (Auto) 0.46 K/uL (0.11-0.59) 12/12/24 22:54 Eos # (Auto) 0.20 K/uL (0.00-0.50) 12/12/24 22:54 Baso # (Auto) 0.06 K/uL (0.00-0.20) 12/12/24 22:54 Immature Gran # (Auto) 0.02 K/uL (0.01-0.20) 12/12/24 22:54 Sodium 142 mmol/L (136-145) 12/12/24 22:54 Potassium 3.2 mmol/L (3.5-5.1) L 12/12/24 22:54 Chloride 107 mmol/L (98-107) 12/12/24 22:54 Carbon Dioxide 26 mmol/L (21-32) 12/12/24 22:54 Anion Gap 9 (3-11) 12/12/24 22:54 BUN 19 mg/dl (6-23) 12/12/24 22:54 Creatinine 1.05 mg/dl (0.6-1.2) 12/12/24 22:54 Est Cr Clr Drug Dosing 60.2 ml/min 12/12/24 22:54 eGFR 60.08 12/12/24 22:54 BUN/Creatinine Ratio 18.1 (10-20) 12/12/24 22:54 Glucose 130 mg/dl (70-99(Fasting)) H 12/12/24 22:54 Calcium 9.0 mg/dl (8.6-10.3) 12/12/24 22:54 Total Bilirubin 0.5 mg/dl (0.2-1.0) 12/12/24 22:54 AST 18 U/L (13-39) 12/12/24 22:54 ALT 14 U/L (7-52) 12/12/24 22:54 Alkaline Phosphatase 77 U/L (34-104) 12/12/24 22:54 Total Protein 6.5 gm/dl (6.0-8.3) 12/12/24 22:54 Albumin 3.8 gm/dl (3.4-5.0) 12/12/24 22:54 Globulin 2.7 gm/dl (2.5-4.0) 12/12/24 22:54 Albumin/Globulin Ratio 1.4 (0.9-2) 12/12/24 22:54 PG Care Time/CCT Total # of Minutes Spent Total Time Spent with Patient: Total time spent is greater than 50% in coordination of care (as documented) at patient's floor/unit and/or counseling patient: Coding Level of Care Code 51800 INT INP/OBS CARE 2/55MIN Diagnoses Vertigo R42 Hyperlipidemia E78.5
[2024-12-13] MEDS ORDERED: FLUTICASONE PROPIONATE NA SPR 16 GM BTL PRN (03:08)
[2024-12-13] MEDS ORDERED: ALBUTEROL 0.083% NEBU SOLN 3 ML VIAL INH PRN (03:08)
[2024-12-13] MEDS: POTASSIUM CHLORIDE 10 MEQ TABCR PO STA (03:24)
[2024-12-13] MEDS: POTASSIUM CHLORIDE / WTR 10 MEQ/100 ML PLCT IV SCH (04:09)
[2024-12-13] MEDS: MECLIZINE HCL 25 MG TAB PO SCH (08:42)
[2024-12-13] MEDS: FLUTICASONE/VILANTEROL 100/25MCG 14 PUFFS/INHALER INH SCH (08:42)
[2024-12-13] MEDS: ONDANSETRON INJ 2 MG/ML 2 ML VIAL IV PRN (10:40)
--- NOTE | 2024-12-13 12:32 | Hospitalist Progress Note ---
Date of Service December 13, 2024 Assessment & Plan (1) Vertigo: (2) Hyperlipidemia: Plan 64-year-old female presenting with vertigo symptoms that began around 17: 00. No improvement with 1 round of medication administered in the ER. Patient does live alone and is unable to ambulate #Vertigo Presumed peripheral vertigo Meclizine 25 mg p.o. 3 times daily scheduled Zofran as needed PT/OT evaluations appreciated #Hyperlipidemia Continue Crestor #Hypokalemia Oral potassium failed due to vomiting, K riders ordered AM BMP #Anxiety/mental health Continue paroxetine 20 mg p.o. nightly #GERD Continue Protonix 40 mg p.o. nightly Continued inpatient stay, hopeful for discharge tomorrow Admission and Anticipated Discharge Date Admission Date: December 13, 2024 Subjective patient seen lying in bed while holding down in the ED. States that her symptoms are slightly improved that she is no longer dizzy with just turning her head. Feels very dizzy and that she has lost control of her body when she is ou t and moving around. did say that her sister would stay with her but would prefer to be more steady on her feet does report she was having increased sinus drainage over the last week Review of Systems Review of Systems: All systems reviewed & are unremarkable except as noted in Subjective Physical Exam Physical Exam: General: NAD, VS as above HEENT: + nystagmus Resp: normal respiratory effort, lungs clear to auscultation CV: RRR, no murmur, Abd: normal bowel sounds, non tender, soft Extremities: Moves all extremities, no edema Neuro: A&O x3, Results & Data Results & Data Vital Signs (Past 12 Hours) Vital Signs Temp Pulse Pulse Resp BP Pulse Ox O2 Del Method 12/13/24 10:44 60 18 125/71 96 Room Air 12/13/24 07:14 58 L 12/13/24 07:14 63 18 128/77 99 Room Air 12/13/24 04:24 98.1 F 59 L 20 135/82 95 Room Air 12/13/24 03:49 68 18 135/77 96 Room Air 12/13/24 02:13 53 L 12/13/24 02:00 55 L 14 142/83 H 97 Room Air PG Care Time/CCT Total # of Minutes Spent Total Time Spent with Patient: Total time spent is greater than 50% in coordination of care (as documented) at patient's floor/unit and/or counseling patient: Coding Level of Care Code None Diagnoses Vertigo R42 Hyperlipidemia E78.5
--- NOTE | 2024-12-13 12:41 | Electrocardiogram Report ---
Test Reason : Blood Pressure : */* mmHG Vent. Rate : 50 BPM Atrial Rate : 50 BPM P-R Int : 188 ms QRS Dur : 96 ms QT Int : 516 ms P-R-T Axes : 39 -19 30 degrees QTcB Int : 470 ms Sinus bradycardia Incomplete right bundle branch block Borderline ECG When compared with ECG of 21-Mar-2024 15:30, Nonspecific T wave abnormality no longer evident in Lateral leads Confirmed by Tl Caceres ([id number]) on 12/13/2024 12:41:39 PM Referred By: REFERRED SELF Confirmed By: Tl Caceres
[2024-12-13] MEDS: ROSUVASTATIN CALCIUM 20 MG TAB PO SCH (20:39)
[2024-12-14 07:56] LABS: Anion Gap 5.0 (3-11); Blood Urea Nitrogen 16.0 mg/dl (6-23); Calcium 8.6 mg/dl (8.6-10.3); Carbon Dioxide 26.0 mmol/L (21-32); Chloride 110.0 mmol/L (98-107); Creatinine Clr Calc Pharmacy 65.1 ml/min; Glucose 99.0 mg/dl (70-99(Fasting)); Potassium 3.9 mmol/L (3.5-5.1); Sodium 141.0 mmol/L (136-145)
[2024-12-14 08:01] VITALS: BP 121/73; RESP 16; TEMP 97.9; O2SAT 96
[2024-12-14] MEDS: ACETAMINOPHEN 500 MG TAB PO PRN (09:35)
--- NOTE | 2024-12-14 10:19 | Discharge Summary ---
Discharge Summary Date of Service December 14, 2024 Principal Dx & Hospital Course #1 = Principal Diagnosis (1) Vertigo: (2) Hyperlipidemia: Plan #Vertigo 64-year-old female presenting with vertigo symptoms that began around 17: 00. No improvement with 1 round of medication administered in the ER. symptoms much improved with schedule meclizine. Worked with PT, stable for discharge home. Called energy rehab at the [facility] confirmed they can do vestibular rehab, rx provided. Continue meclizine at discharged, discussed weaning off. #Hyperlipidemia - Continue Crestor #Hypokalemia - replaced IV and now replete #Anxiety/mental health Continue paroxetine 20 mg p.o. nightly #GERD Continue Protonix 40 mg p.o. nightly dispo: discharge to home today, outpatient vestibular rehab Admission HPI Per Admitting Provider Vaishali Jimenes is a 64-year-old female with history of hyperlipidemia and GERD presenting with vertigo. Patient was sitting watching TV this evening around 17: 00 when she developed acute onset of vertigo. She reports she feels the room is spinning. Visual blurriness as well as gait instability. No headache, speech difficulty, focal numbness/tingling/weakness. Patient seen in the ER and received several rounds of medication with no improvement in symptoms. Unable to ambulate. Lives alone. ER course: Meclizine 25 mg p.o. Normal saline x 1 L Ativan 1 mg IV Zofran 4 mg IV P.o. Valium and p.o. potassium attempted however, patient was unable to take the pills and vomited immediately Discharge Exam General: NAD, VS as above HEENT: + nystagmus Resp: normal respiratory effort, CV: well perfused Extremities: Moves all extremities, no edema Neuro: A&O x3, Discharge Plan Discharge Items Patient Disposition: Home - Self-Care Reason For Visit: VERTIGO Discharge Diagnosis: Vertigo Activity: Resume your previous activity Weightbearing: Full weightbearing Non-emergency contact: Primary Care Provider Call non-emergency contact if: you have any medication questions, your symptoms worsen and your temperature is above 101 Follow-up/Referrals: Shruthi Macias CRNP [Primary Care Provider] - (follow up within one week ) Diet: Heart Healthy Addtl Attending Provider Instructions: Ms. Jimenes, Kermit were hospitalized with vertigo, this was treated with meclizine and then maneuver from the physical therapist. Your symptoms have greatly improved. You will be continued on meclizine three times a day. As your symptoms improve, you can wean this down to half a tab three times a day, and then eventually 0.5-1 tab as needed. I called and confirmed the rehab at the [facility] can do vestibular rehab. I have provided a prescription for you to do so. Do not drive if you are feeling dizzy or vertiginous. Please follow up within one week. Activity: You can do normal everyday activities as your body allows. Take rest breaks if you feel tired. Do not overexert. Stop activity if you have pain, shortness of breath or feel dizzy. Follow-up appointments: Make an appointment with your primary care physician within one week of discharge. A copy of this summary will be sent to them. Every time you see your primary care physician, or any other doctor, bring your medication list, and a list of questions. CONTACT YOUR PRIMARY CARE PROVIDER if you experience any of the following: Shortness of breath or difficulty breathing Fevers or chills Feeling tired with normal activity or experiencing dizziness or fainting Difficulty following your treatment plan, or difficulty taking medications CALL 911 OR GO TO THE EMERGENCY DEPARTMENT if you experience any of the following: Severe abdominal pain or nausea/vomiting Severe chest pain, or chest pain that radiates (moves) to your jaw or arm Sudden, severe shortness of breath or difficulty breathing Thank you for allowing us to participate in your care. Pending Studies at Discharge: No Stand-Alone Forms: My [facility] Streak, Smoking Cessation Medications and DC Order Prescriptions: New meclizine 25 mg Tablet 25 mg PO TID Qty: 60 0RF Continued albuterol sulfate 2.5 mg /3 mL (0.083 %) solution for nebulization 2.5 mg inhalation Q4H PRN (Reason: shortness of breath or wheezing) Qty: 90 2RF fluticasone propionate [Allergy Relief (fluticasone)] 50 mcg/actuation spray,suspension 1 spray intranasal QAM PRN (Reason: Congestion) Qty: 48 3RF Rx Instructions: administer into each nostril once daily levocetirizine 5 mg tablet 5 mg PO HS PRN (Reason: allergy symptoms) Qty: 90 1RF pantoprazole 40 mg tablet,delayed release (DR/EC) 40 mg PO HS Qty: 90 3RF paroxetine HCl 20 mg tablet 20 mg PO HS Qty: 90 3RF rizatriptan 10 mg tablet,disintegrating 10 mg PO UD PRN (Reason: Headache) Qty: 14 3RF Wegovy 0.5 mg/0.5 mL pen injector 0.5 mg subcut Q7D Qty: 2 5RF Patient Comments: mondays Rx Instructions: 12/13/24 TAKE THIS MED EVERY FRIDAY acetaminophen [Tylenol Extra Strength] 500 mg tablet 1,000 mg PO Q8 PRN (Reason: pain) Qty: 30 0RF zolpidem 5 mg tablet 10 mg PO HS PRN (Reason: insomnia) Rx Instructions: Take 2 tablets at HS prn rosuvastatin 40 mg tablet 40 mg PO HS fluticasone propion-salmeterol [Advair Diskus] 100-50 mcg/dose blister with device 1 inh inhalation BID PRN (Reason: Shortness Of Breath Or Wheezing) Discharge Orders: Discharge Order (Routine); Ordered 12/14/24 Ordered By: Kathrine Gurrola/Other Patient Handouts: Vestibular Rehab Therapy, BPP[facility] Admission Data Admit Date/Time: 12/13/24 01:57 Attending Provider: Jesi Perez Admit Provider: Chayo Austin Primary Care Provider: Shruthi Macias Other Providers: Chayo Austin Hospital Stay Data Consultations 12/13/24 01:47 ED Decision to Admit Stat Pending Results Patient Have Any Pending Studies at Discharge: No Discharge Instructions Given to Patient (Per Discharging Provider) Ms. Jimenes, You were hospitalized with vertigo, this was treated with meclizine and then maneuver from the physical therapist. Your symptoms have greatly improved. You will be continued on meclizine three times a day. As your symptoms improve, you can wean this down to half a tab three times a day, and then eventually 0.5-1 tab as needed. I called and confirmed the rehab at the [facility] can do vestibular rehab. I have provided a prescription for you to do so. Do not drive if you are feeling dizzy or vertiginous. Please follow up within one week. Activity: You can do normal everyday activities as your body allows. Take rest breaks if you feel tired. Do not overexert. Stop activity if you have pain, shortness of breath or feel dizzy. Follow-up appointments: Make an appointment with your primary care physician within one week of discharge. A copy of this summary will be sent to them. Every time you see your primary care physician, or any other doctor, bring your medication list, and a list of questions. CONTACT YOUR PRIMARY CARE PROVIDER if you experience any of the following: Shortness of breath or difficulty breathing Fevers or chills Feeling tired with normal activity or experiencing dizziness or fainting Difficulty following your treatment plan, or difficulty taking medications CALL 911 OR GO TO THE EMERGENCY DEPARTMENT if you experience any of the following: Severe abdominal pain or nausea/vomiting Severe chest pain, or chest pain that radiates (moves) to your jaw or arm Sudden, severe shortness of breath or difficulty breathing Thank you for allowing us to participate in your care. Total Time Total Time Spent Total Time Spent (In Minutes): Time spent day of discharge 36 minutes including direct patient care, medication reconciliation, documentation, review of labs and images, and coordination of care. Coding Level of Care Code 98632 INP/OBS DISCH >30 MIN Diagnoses Vertigo R42 Hyperlipidemia E78.5
[2024-12-14 11:05] VITALS: PULSE 59
== END 2024-12-14 11:42 | disposition home or self-care (01) ==
LOC: EDINP 21:55 → ED 21:55 → SUATTDRO 12-13 01:57 → 3N 12-13 03:08
DX: K21.9 Gastro-esophageal reflux disease without esophagitis; R42 Dizziness and giddiness; Z88.1 Allergy status to other antibiotic agents; Z79.899 Other long term (current) drug therapy; Z88.2 Allergy status to sulfonamides; E87.6 Hypokalemia; E78.5 Hyperlipidemia, unspecified